=== PATIENT | male | born 1980 | race Caucasian/White ===

== ENCOUNTER 2017-03-15 08:14 | Outpatient (RCR) | payer OTHER ==
[~2017-03-15 08:14] MED LIST: CLEOCIN HCL300 MG PO; LORTAB 5/500 501 TAB PO; NAPROSYN500 MG PO; ZESTRIL 5MG5 MG PO
== END 2017-03-21 13:13 | disposition home or self-care (01) ==
LOC: WSOH 08:14
DX: S23.3XXA Sprain of ligaments of thoracic spine, initial encounter (principal); X58.XXXA Exposure to other specified factors, initial encounter; Y99.0 Civilian activity done for income or pay